=== PATIENT | female | born 1940 | race Caucasian/White ===

== ENCOUNTER 2017-09-28 00:37 | Observation (INO) | payer MEDICARE, MEDICAID ==
[2017-09-28 01:41] LABS: Anion Gap 16 mmol/L (10-20); BUN (Urea Nitrogen) 50 mg/dL (9.8-20.1); Calc. Creatinine Clearance 0 mL/min (70-130); Calcium 9.7 mg/dL (7.8-10.44); Carbon Dioxide 30 mmol/L (23-31); Chloride 97 mmol/L (98-107); Estimated GFR-MDRD 40; Glucose 100 mg/dL (83-110); Potassium 3.2 mmol/L (3.5-5.1); Sodium 140 mmol/L (136-145)
[2017-09-28] MEDS ORDERED: Acetaminophen 325 MG TAB ONE (01:55)
[2017-09-28 05:05] LABS: Troponin I Less than 0.010 ng/mL (< 0.028)
[2017-09-28] MEDS ORDERED: traMADol HCl 50 MG TAB ONE (05:21)
[2017-09-28 07:40] LABS: Troponin I Less than 0.010 ng/mL (< 0.028)
[2017-09-28] MEDS ORDERED: Potassium Chloride 20 MEQ TAB PO SCH ×2 (09:30→17:45)
[2017-09-28] MEDS ORDERED: Lidocaine Patch Removal 1 EACH TOP SCH (11:15)
--- NOTE | 2017-09-28 12:07 | RAD ---
FIVE VIEWS CERVICAL SPINE INCLUDING FLEXION AND EXTENSION VIEWS: Date: 09-28-17 History: Neck pain. FINDINGS: C1 and cervicothoracic junction seen on the lateral view. There is trace anterolisthesis of C4 on C5. Prominent degenerative changes are seen at the C5-6 and C6-7 levels with endplate degenerative quick es, loss of intervertebral disc space and osteophyte formation. The vertebral body heights are within normal limits and no fracture is identified. No abnormal translational motion is seen between flexio n and extension views. There does appear to be fusion of the posterior elements at the C2-3 level. Pr evertebral soft tissues are within normal limits. IMPRESSION: 1. Trace anterolisthesis of C4 on C5 which is probably on the basis of facet degenerative changes. 2. Prominent degenerative changes at the C5-6 and C6-7 levels. 3. No evidence of a fracture. POS: [facility]
--- NOTE | 2017-09-28 12:18 | RAD ---
LEFT SHOULDER THREE VIEWS: 09/28/2017 HISTORY: Left shoulder pain. FINDINGS: There is suggestion of mild tapering at the distal aspect of the left clavicle, but this is a stable finding when compared to a prior study from 06/02/2014. Coracoclavicular and acromioclavicular dista nces are within normal limits. No fracture or dislocation is seen. No other findings. IMPRESSION: No acute osseous abnormality, left shoulder. POS: [facility]
[2017-09-28 13:53] VITALS: BMI 37.0
[2017-09-28] MEDS: traMADol HCl 50 MG TAB PO PRN (20:58)
[2017-09-28] MEDS: Simvastatin 5 MG TAB PO SCH (20:59)
[2017-09-28] MEDS ORDERED: Non-Formulary Item 1 EACH (Losartan Potassium [Losartan Potassium] 50 MG) PO SCH (21:00)
[2017-09-28] MEDS: Donepezil HCl 5 MG TAB PO SCH (21:00)
[2017-09-28] MEDS ORDERED: Non-Formulary Item 1 EACH (Simvastatin [Simvastatin] 10 MG) PO SCH (21:00)
[2017-09-28] MEDS: Losartan 25 MG TAB PO SCH (21:03)
--- NOTE | 2017-09-29 03:09 | HP ---
CHIEF COMPLAINT: Left-side shoulder pain. HISTORY OF PRESENT ILLNESS: The patient is a pleasant 76-year-old female [place] Has a history of coronary artery disease, status post stent x5 back in [place]. The patient states that for the past few days she has been having the left neck pain that started sponta neously. The patient denies any fevers, chills. Denies any nausea, vomiting, diarrhea. Denies any chest discomfort or chest pressure, or shortness of breath. The patient states that it feels like a muscle ache around her left neck area. She has got limited range of mobility in the left hand. The patient does not recall her last cardiac catheterization or her last stress test. PAST MEDICAL HISTORY: Hypertension, coronary artery disease. FAMILY HISTORY: Mother had hypertension. Father also had heart disease, in a car wreck. SOCIAL HISTORY: She denies any drinking alcohol or drug use. PAST SURGICAL HISTORY: The patient has had an appendectomy and stent placement. ALLERGIES: She has no known drug allergies. MEDICATIONS: She takes Lasix 40 mg daily, iron 325 mg daily, Namenda 10 mg daily, potassium chloride 10 mEq 1 tab twice a day, losartan 25 mg daily, ____ 1 mg daily, atorvastatin 10 mg daily, donepezil 10 mg daily, carvedilol 12.5 mg 1 p.o. b.i.d. PHYSICAL EXAMINATION: VITAL SIGNS: Temperature of 97.8, heart rate of 57, sats are 95% on room air, blood pressure 123/68. GENERAL: She is awake, alert, oriented x3, does not appear in any distress. CARDIOVASCULAR: S1, S2 present. No murmurs, rubs or gallops. LUNGS: Clear to auscultation. No rhonchi or wheezes noted. ABDOMEN: Soft, nontender. Bowel sounds are present x2. No hepatomegaly or splenomegaly noted. EXTREMITIES: Lower extremity: She does have +1 lower extremity pitting edema. LABORATORY DATA AND IMAGING: As following: WBC of 9.7, hemoglobin of 12.6, hematocrit of 37.9. Chary cinthya indicates a sodium of 140, potassium of 3.2, bicarbonate of 30, BUN of 50, creatinine of 1.29. Troponins x3 are negative. TSH normal at 2.05. Chest x-ray did not show any acute abnormalities. ASSESSMENT AND PLAN: The patient is a very pleasant 76-year-old female who initially presented to [facility] for left-sided shoulder pain. 1. Atypical chest pain. The patient does have a history of coronary disease, stents x5. EKG, no ac shey abnormalities noted. Troponins x3 are negative. I will like to go ahead and do a stress test on this patient. However, she had some coffee this morning, so we will do a stress test in the morning . If negative, she will be discharged home. 2. Left-sided neck and shoulder pain. We will get x-rays to rule out any radiculopathy or any impin gement. 3. We will also give her some Lidoderm patch for pain relief. 4. Hypertension. We will continue her home medications. 5. Asymptomatic bradycardia. The patient is on carvedilol 12.5 b.i.d. May consider either stopping the dose or even decreasing it to 3.125 b.i.d. 6. Deep venous thrombosis prophylaxis. We will put the patient on subcu heparin.
[2017-09-29 05:34] LABS: Anion Gap 13 mmol/L (10-20); BUN (Urea Nitrogen) 36 mg/dL (9.8-20.1); Calc. Creatinine Clearance 66 mL/min (70-130); Calcium 9.7 mg/dL (7.8-10.44); Carbon Dioxide 31 mmol/L (23-31); Cardiac Risk 2.8 (Less than 4.5); Chloride 98 mmol/L (98-107); Cholesterol 165 mg/dl (< 200 Desired); Estimated GFR-MDRD 43; Glucose 108 mg/dL (83-110); HDL Cholesterol 59 mg/dL (>60 Neg Risk); LDL Cholesterol, Calculated 86 mg/dL; Potassium 3.1 mmol/L (3.5-5.1); Sodium 139 mmol/L (136-145); Triglycerides 99 mg/dL (Less than 150)
[2017-09-29] MEDS: traMADol HCl 50 MG TAB PO PRN (08:11)
[2017-09-29] MEDS: Losartan 25 MG TAB PO SCH ×2 (13:21→20:40)
[2017-09-29] MEDS: Clopidogrel Bisulfate 75 MG TAB PO SCH (13:23)
[2017-09-29] MEDS: Lidocaine 5% Patch TD SCH (13:24)
--- NOTE | 2017-09-29 14:05 | NM ---
CARDIAC STRSS: HISTORY: A 76-year-old female with chest pain. Coronary artery disease status post stent placement and hypert ension. TECHNIQUE: A myocardial perfusion scan was performed using the single-isotope 2-day protocol with 33 mCi Technet ium 99m sestamibi injected intravenously for the stress and rest images. Pharmacologic stress with L exiScan is monitored and interpreted by Beatris Solorio PA-C. FINDINGS: Homogeneous tracer distribution is seen in the myocardial segments on stress and rest images without fixed or reversible defects. The TID ratio measures 1.26. GATED SPECT LVEF: 79%. WALL MOTION EXAM: Normal. IMPRESSION: TID ratio is 1.26. Clinical correlation is recommended. POS: [facility]
[2017-09-29] MEDS ORDERED: Regadenoson 0.4 MG/5 ML SYRINGE ONE (16:33)
[2017-09-29] MEDS: Potassium Chloride 20 MEQ TAB PO SCH (17:25)
[2017-09-29] MEDS: Simvastatin 5 MG TAB PO SCH (20:39)
[2017-09-29] MEDS: Donepezil HCl 5 MG TAB PO SCH (20:39)
--- NOTE | 2017-09-29 21:11 | CON ---
DATE OF CONSULTATION: 09/29/2017 REASON FOR CONSULTATION: Atypical chest pain. REFERRING PROVIDER: Dr. Sullivan. HISTORY OF PRESENT ILLNESS: Ms. Wilde is a 76-year-old woman who recently moved from [place]. She townsend s a history of CAD, status post stent placement. History is vague. She is a poor historian. She st ates she has had chest pain with one episode recently. It was mainly in her upper chest. She also h ad pain in her left arm with movement. Consultation was obtained due to abnormal stress test with TI D of 1.26. Patient is currently pain free. PAST MEDICAL HISTORY: CAD status post stent placement to unknown vessel and hypertension. SOCIAL HISTORY: No current tobacco or alcohol use. SURGICAL HISTORY: Appendectomy. ALLERGIES: None. MEDICATIONS: Lasix, iron, losartan, Namenda, donepezil, carvedilol, potassium chloride, and atorvast atin. REVIEW OF SYSTEMS: Ten point review of systems as above, otherwise negative. PHYSICAL EXAMINATION: GENERAL: Patient is a pleasant female who is in no acute distress. The patient appears her stated a ge. VITAL SIGNS: Blood pressure 119/66, pulse 59, temperature 97.8. NEUROLOGIC: The patient is alert and oriented times 3 with no focal neurologic deficits. HEENT: Sclerae without icterus. Mouth has moist mucous membranes with normal pallor. NECK: No JVD. Carotid upstroke brisk. No bruits bilaterally. LUNGS: Clear to auscultation with unlabored respirations. BACK: No scoliosis or kyphosis. CARDIAC: Regular rate and rhythm with normal S1 and S2. No S3 or S4 noted. No significant rubs, mu rmurs, thrills, or gallops noted throughout the precordium. PMI is not displaced. There is no carroll ternal heave. ABDOMEN: Soft, nontender, nondistended. No peritoneal signs present. No hepatosplenomegaly. No ab normal striae. EXTREMITIES: 2+ femoral and 2+ dorsalis pedis pulses. No cyanosis, clubbing, or edema. SKIN: No gross abnormalities. PERTINENT LABORATORY DATA: Creatinine 1.22, potassium 3.1. IMAGING DATA: 1. Stress rest myocardial perfusion study, LVEF 79%, 1.26. 2. EDV 91. ESV 19. 3. LVEF 79%. IMPRESSION: 1. Atypical chest pain. 2. Coronary artery disease. 3. Elevated TID. RECOMMENDATIONS: Ms. Wilde's symptoms are not consistent with angina. Her TID elevation is likely re lated to small end diastolic and systolic volumes. At this point, given no symptoms and atypical sym ptoms, it will be from my standpoint to discharge home with close outpatient followup with me. She has not established with Cardiology in the area. Plan is to follow up with me in one week.
--- NOTE | 2017-09-30 06:09 | PDOC.PN ---
- Subjective Encounter Start Date: 09/29/17 Encounter Start Time: 10:15 Subjective: pt up in bed no compalins - Objective Vital Signs & Weight: Vital Signs (12 hours) Temp Pulse Resp BP BP Pulse Ox 09/30/17 04:10 98.4 F 86 20 97/50 L 94 L 09/29/17 20:00 98.4 F 60 18 09/29/17 19:21 98.4 F 60 18 109/65 95 Weight Weight 229 lb 8 oz I&O: 09/28/17 09/29/17 09/30/17 06:59 06:59 06:59 Intake Total 240 Balance 240 Result Diagrams: 09/29/17 04:09 Phys Exam - Physical Examination HEENT: PERRLA, moist MMs, sclera anicteric, TM's clear, oral pharynx no lesions , 2+ tonsils Neck: no nodes, no JVD, supple, full ROM Respiratory: no wheezing, no rales, no rhonchi, wheezing present, clear to auscultation bilateral Cardiovascular: RRR, no significant murmur, no rub, gallop, irregular Gastrointestinal: soft, non-tender, no distention, positive bowel sounds Dx/Plan - Plan * 1) atypical chest pain * 2) CADs/p 5 stents * 3) htn * 4) asymptomatic bradycardia * * plan: pt going for stress test today. continue current meds. * . Review of Systems - Review of Systems ENT: negative: Ear Pain, Ear Discharge, Nose Pain, Nose Discharge, Nose Congestion, Mouth Pain, Mouth Swelling, Throat Pain, Throat Swelling, Other Respiratory: negative: Cough, Dry, Shortness of Breath, Hemoptysis, SOB with Excertion, Pleuritic Pain, Sputum, Wheezing Cardiovascular: negative: chest pain, palpitations, orthopnea, paroxysmal nocturnal dyspnea, edema, light headedness, other Gastrointestinal: negative: Nausea, Vomiting, Abdominal Pain, Diarrhea, Constipation, Melena, Hematochezia, Other Genitourinary: negative: Dysuria, Frequency, Incontinence, Hematuria, Retention , Other - Medications/Allergies Allergies/Adverse Reactions: Allergies Allergy/AdvReac Type Severity Reaction Status Date / Time No Known Drug Allergies Allergy Verified 09/28/17 18:03 Medications: Current Medications Clopidogrel Bisulfate (Plavix) 75 mg PO DAILY [facility] Last Admin: 09/29/17 13:23 Dose: 75 mg Donepezil HCl (Aricept) 5 mg PO HS [facility] Last Admin: 09/29/17 20:39 Dose: 5 mg Lidocaine (Lidoderm 5% Patch) 1 patch TD DAILY [facility] Last Admin: 09/29/17 13:24 Dose: 1 patch Losartan Potassium (Cozaar) 50 mg PO BID [facility] Last Admin: 09/29/17 20:40 Dose: 50 mg Memantine (Namenda) 10 mg PO BID [facility] Last Admin: 09/29/17 20:39 Dose: 10 mg Miscellaneous Medication (Lidocaine Patch Removal) 1 each TOP ASDIR [facility] Potassium Chloride (K-Dur) 40 meq PO BID-WM [facility] Last Admin: 09/29/17 17:25 Dose: 40 meq Simvastatin (Zocor) 10 mg PO HS [facility] Last Admin: 09/29/17 20:39 Dose: 10 mg Tramadol HCl (Ultram) 50 mg PO Q4H PRN PRN Reason: Pain Last Admin: 09/29/17 08:11 Dose: 50 mg
[2017-09-30 07:58] VITALS: BP 116/58; TEMP 97.6
[2017-09-30] MEDS ORDERED: Potassium Chloride 20 MEQ TAB PO SCH (08:30)
[2017-09-30] MEDS: Lidocaine 5% Patch TD SCH (08:35)
[2017-09-30] MEDS: Clopidogrel Bisulfate 75 MG TAB PO SCH (08:36)
[2017-09-30] MEDS: Losartan 25 MG TAB PO SCH (08:36)
[2017-09-30] MEDS: Potassium Chloride 20 MEQ TAB PO SCH (08:41)
--- NOTE | 2017-09-30 11:06 | DIS ---
DATE OF ADMISSION: 09/28/2017 DATE OF DISCHARGE: 09/30/2017 DISCHARGE DIAGNOSES: 1. Atypical chest pain. 2. Coronary artery disease. 3. Hypertension. 4. Hypokalemia. HOSPITAL COURSE: The patient is a very pleasant 76-year-old female who initially presented to the [facility] with complaints of left-sided shoulder pain. The patient's troponins x3 were negative. EKG; no subtle changes. She underwent a stress test which indicated that the patient's TID ratio was 1.26 . Given her history of coronary artery disease with stents x5 stents placed back in [place], I did c onsult Cardiology. Cardiology did see the patient as stated to follow up as an outpatient in 1 week. The patient has been notified about this. The patient also had a left shoulder and left cervical s pine x-ray that just indicated the left shoulder had no acute osseous abnormality and the cervical sp ine indicated anterolisthesis of C4 and C5. Prominent degenerative changes in C5-C6, C6-C7. No frac tures were noted. The patient will be discharged home. She was asked to follow up with her primary care doctor in 1 week and also with Cardiology in 1 week. PHYSICAL EXAMINATION: VITAL SIGNS: Temperature of 98.4, 60, 18 and 94% on room air, blood pressure of 116/58. GENERAL: She is awake, alert, oriented x3, does not appear in distress. CARDIOVASCULAR: S1, S2 present. No murmurs, rubs or gallops. ABDOMEN: Soft, nontender. Bowel sounds are present x2. EXTREMITIES: No edema. Pedal pulses are present x2. The patient will be discharged home. Follow up as recommended. DISCHARGE MEDICATIONS: As the followin. Simvastatin 10 mg q.p.m. 2. Potassium chloride 20 mEq daily. 3. MiraLax 17 grams daily. 4. Namenda 10 mg p.o. b.i.d. 5. Losartan, will decrease the dose to 25 mg b.i.d. 6. Hydrochlorothiazide 25 mg b.i.d. We will decrease this to 12.5 b.i.d. 7. Donepezil 5 mg p.o. at bedtime. 8. Plavix 75 mg daily. 9. Coreg 12.5 p.o. b.i.d.
== END 2017-09-30 11:10 | disposition home or self-care (01) ==
LOC: ERS 00:37 → ERHOLD 03:15 → 2SW 13:33
PROVIDERS: ADMIT Internal Medicine; ATTEND Internal Medicine
DX: R07.89 Other chest pain (principal); M25.512 Pain in left shoulder; M54.2 Cervicalgia; R00.1 Bradycardia, unspecified; I25.10 Atherosclerotic heart disease of native coronary artery without angina pectoris; I10 Essential (primary) hypertension; E87.6 Hypokalemia; Z79.899 Other long term (current) drug therapy; Z98.890 Other specified postprocedural states; Z82.49 Family history of ischemic heart disease and other diseases of the circulatory system
CPT/HCPCS: 72050; 73030; 78452; 80048 ×2; 80061; 84443; 84484 ×2; 93005; 93017; 94760 ×2; 99285; A9500; G0378; 36415; J2785